=== PATIENT | male | born 1995 | race African-American/Black ===

== ENCOUNTER 2018-08-31 08:19 | Emergency (ER) | payer SELFPAY ==
[~2018-08-31] VITALS: Ht 188 cm; Wt 81.2 kg
[~2018-08-31 08:19] MED LIST: AZIT200S PO; HYDR5SUS PO
--- NOTE | 2018-08-31 08:50 | PHYS DOC ---
Past History Past Medical History: Asthma, Bronchitis Past Surgical History: No Surgical History Alcohol Use: None Drug Use: None Adult General Chief Complaint Chief Complaint: SORE THROAT [facility] HPI 23-year-old male presents with 2 day history of sore throat. Patient states that he began have a sore throat yesterday. It is severe and it is painful to swallow both liquids and solids. He is not having any difficulty breathing. He feels like the right side of his neck is little swollen. He is also had a runny nose and a mild cough. He has not had fever or chills. He took Tylenol last night, but it was painful trying to swallow pills. Review of Systems Review of Systems Constitutional: Denies fever or chills [] Eyes: Denies change in visual acuity, redness, or eye pain [] HENT: Runny nose, sore throat [] Respiratory: Cough without shortness of breath [] Cardiovascular: No additional information not addressed in HPI [] GI: Denies abdominal pain, nausea, vomiting, bloody stools or diarrhea [] : Denies dysuria or hematuria [] Musculoskeletal: Denies back pain or joint pain [] Integument: Denies rash or skin lesions [] Neurologic: Denies headache, focal weakness or sensory changes [] Endocrine: Denies polyuria or polydipsia [] All other systems were reviewed and found to be within normal limits, except as documented in this note. Allergies Allergies Allergies Coded Allergies Type Severity Reaction Last Updated Verified Penicillins Allergy Unknown 08/31/18 Yes Physical Exam Physical Exam Constitutional: Well developed, well nourished, no acute distress, non-toxic appearance. [] HENT: Normocephalic, atraumatic, bilateral external ears normal, oropharynx erythematous without exudates, nose clear discharge. [] Eyes: PERRLA, EOMI, conjunctiva normal, no discharge. [] Neck: Normal range of motion, no tenderness, supple, no stridor. Right sided, anterior, cervical lymphadenopathy [] Cardiovascular:Heart rate regular rhythm, no murmur [] Lungs & Thorax: Bilateral breath sounds clear to auscultation [] Abdomen: Bowel sounds normal, soft, no tenderness, no masses, no pulsatile masses. [] Skin: Warm, dry, no erythema, no rash. [] Back: No tenderness, no CVA tenderness. [] Extremities: No tenderness, no cyanosis, no clubbing, ROM intact, no edema. [] Neurologic: Alert and oriented X 3, normal motor function, normal sensory function, no focal deficits noted. [] Psychologic: Affect normal, judgement normal, mood normal. [] EKG EKG [] Radiology/Procedures Radiology/Procedures [] Course & Med Decision Making Course & Med Decision Making Pertinent Labs and Imaging studies reviewed. (See chart for details) [] Dragon Disclaimer Dragon Disclaimer This electronic medical record was generated, in whole or in part, using a voice recognition dictation system. Departure Departure: Impression: Primary Impression: Viral pharyngitis Disposition: HOME, SELF-CARE Condition: STABLE Referrals: PCP,NO (PCP) Patient Instructions: Viral Pharyngitis JOSE LUIS GOMEZ DO August 31, 2018 08:50
[2018-08-31 09:04] VITALS: BP 133/66
[2018-08-31] MEDS ORDERED: IBUPROFEN 600 MG TABLET. PO ONE (09:20)
[2018-08-31] MEDS ORDERED: LIDOCAINE 2% VISCOUS 15 ML SOLUTION. SWSW ONE (09:20)
== END 2018-08-31 09:03 | disposition home or self-care (01) ==
LOC: ER 08:19
DX: J02.8 Acute pharyngitis due to other specified organisms (principal); B97.89 Other viral agents as the cause of diseases classified elsewhere; J45.909 Unspecified asthma, uncomplicated; Z88.0 Allergy status to penicillin
CPT/HCPCS: 87070; 87880; 99283

== ENCOUNTER 2019-10-19 23:20 | Emergency (ER) | payer MEDICAID ==
[~2019-10-19] VITALS: Ht 188 cm; Wt 88.6 kg
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
[2019-10-19] MEDS ORDERED: IV NORMAL SALINE 1,000ML 1,000 ML IV ONE (23:45)
[2019-10-19 23:53] LABS: BASO # 0.1 x10^3/uL (0.0-0.2); BASO % 1 % (0-3); EOS # 0.2 x10^3/uL (0.0-0.7); EOS % 2 % (0-3); HEMATOCRIT 41.8 % (39.0-53.0); LYMPH # 5.8 x10^3/uL (1.0-4.8); LYMPH % 58 % (24-48); MEAN CORPUSCULAR HEMOGLOBIN 32 pg (25-35); MEAN CORPUSCULAR HGB CONC 34 g/dL (31-37); MEAN CORPUSCULAR VOLUME 96 fL (79-100); MONO # 1.3 x10^3/uL (0.0-1.1); MONO % 13 % (0-9); NEUT # 2.6 x10^3uL (1.8-7.7); NEUT % 26 % (31-73); PLATELET COUNT 407 x10^3/uL (140-400); RED BLOOD COUNT 4.36 x10^6/uL (4.30-5.70); RED CELL DISTRIBUTION WIDTH 13.3 % (11.5-14.5)
[2019-10-20] MEDS ORDERED: CLINDAMYCIN 600MG PREMIX 50 ML IV ONE
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
[2019-10-20 00:08] LABS: ALBUMIN 3.9 g/dL (3.4-5.0); CALCIUM 9.3 mg/dL (8.5-10.1); CREATININE 1.5 mg/dL (0.7-1.3); GFR 68.4; TOTAL BILIRUBIN 0.4 mg/dL (0.2-1.0); TOTAL PROTEIN 7.9 g/dL (6.4-8.2)
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
[2019-10-20] MEDS ORDERED: LIDOCAINE 2% 20 ML VIAL. IJ ONE (00:30)
[2019-10-20] MEDS ORDERED: NEOMY/BACITR/POLYMYXIN OINT PACKET. TP ONE (01:27)
[2019-10-20] MEDS ORDERED: OXYC-325 PO (01:39)
[2019-10-20] MEDS ORDERED: CEPH-263 PO (01:39)
[2019-10-20] MEDS: BACITRACIN ZINC TOPICAL OINT PACKET. TP ONE (02:00)
[2019-10-20] MEDS ORDERED: CEPHALEXIN 250 MG CAPSULE PO ONE (02:00)
[2019-10-20] MEDS ORDERED: oxyCODONE/APAP 5/325 1 TAB TABLET PO ONE (02:00)
[2019-10-22 00:25] VITALS: BP 181/79
[2019-10-22] MEDS ORDERED: NEOMY/BACITR/POLYMYXIN OINT PACKET. TP ONE (06:15)
== END 2019-10-20 02:10 | disposition home or self-care (01) ==
LOC: EEVIPCON 23:20 → ER 23:20
DX: S41.001A Unspecified open wound of right shoulder, initial encounter (principal); S91.301A Unspecified open wound, right foot, initial encounter; J45.909 Unspecified asthma, uncomplicated; Z88.0 Allergy status to penicillin; W34.09XA Accidental discharge from other specified firearms, initial encounter; Y93.89 Activity, other specified; Y92.89 Other specified places as the place of occurrence of the external cause; Y99.8 Other external cause status
CPT/HCPCS: 12002; 36415; 71045; 73030; 73630; 80053; 85025; 96365; 96375; 96376; 99284; J2001; J3010; J3490; J7030; 12001

== ENCOUNTER 2020-08-14 06:31 | Emergency (ER) | payer MEDICAID ==
[~2020-08-14] VITALS: Ht 188 cm; Wt 104.5 kg
[~2020-08-14 06:31] MED LIST changes: +CEPH-263 PO; +OXYC-325 PO
[2020-08-14 06:50] VITALS: BP 150/64
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
[2020-08-14] MEDS ORDERED: DIPH,PERTUSS(ACELL),TET VAC/PF 0.5 ML SYRINGE. VAX IM ONE (08:00)
== END 2020-08-14 08:08 | disposition home or self-care (01) ==
LOC: ER 06:31
DX: S60.031A Contusion of right middle finger without damage to nail, initial encounter (principal); J45.909 Unspecified asthma, uncomplicated; Z88.0 Allergy status to penicillin; W22.8XXA Striking against or struck by other objects, initial encounter; Y93.89 Activity, other specified; Y92.89 Other specified places as the place of occurrence of the external cause; Y99.8 Other external cause status
CPT/HCPCS: 73130; 90471; 90715; 99283